=== PATIENT | female | born 1970 | race Caucasian/White ===

== ENCOUNTER 2020-01-20 00:38 | Emergency (ER) | payer OTHER ==
[~2020-01-20] VITALS: Ht 160 cm; Wt 89.3 kg
[2020-01-20 00:55] VITALS: BP 156/81
--- NOTE | 2020-01-20 01:19 | ED Upper Extremity ---
General Chief Complaint: Upper Extremity Stated Complaint: RT SHOULDER PAIN-FALL IN MAY Source: patient Exam Limitations: no limitations History of Present Illness Date Seen by Provider: Jan 20, 2020 Time Seen by Provider: 00:57 Initial Comments Patient presents ER by private conveyance with chief complaint that she's had a re-aggravation of her right shoulder pain in the last 2 days. She says she fell back in May 2019, 7 months ago and that's what initiated the pain. Occasionally it will act up again. She does not follow with a primary care doctor. She has not seen physical therapy or had any treatment for this. She did take some naproxen and ibuprofen today with only modest relief of pain. No weakness numbness tingling or loss of control. Allergies and Home Medications Allergies Coded Allergies: Penicillins (Unverified Allergy, Mild, 06/08/09) Uncoded Allergies: SWEET POTATOES (Allergy, Mild, 06/08/09) Patient Home Medication List Home Medication List Reviewed: Yes Review of Systems Constitutional: No chills, No diaphoresis EENTM: No ear discharge, No hearing loss Respiratory: No cough, No dyspnea on exertion All Other Systems Reviewed Negative Unless Noted: Yes Past Zrsgcre-Vzvenc-Ghadpi Hx Patient Social History Alcohol Use: Denies Use Recreational Drug Use: No Type Used: Cigarettes Recent Foreign Travel: No Contact w/Someone Who Travel: No Physical Abuse: No Sexual Abuse: No Mistreated: No Fear: No Physical Exam Vital Signs Capillary Refill : Height, Weight, BMI Height: '" Weight: lbs. oz. kg; BMI Method: General Appearance: WD/WN, no apparent distress HEENT: PERRL/EOMI, pharynx normal Neck: non-tender, full range of motion, normal inspection Cardiovascular: normal peripheral pulses, regular rate, rhythm Respiratory: normal breath sounds, no respiratory distress Shoulder: normal inspection, no evidence of injury, limited ROM (difficult see abducting the right shoulder above about 60. Weakness with the supraspinatus but other rotator cuff muscles were symmetrically intact for motor strength) Elbow/Forearm: normal inspection, non-tender, no evidence of injury, normal ROM, Right Procedures/Interventions Progress The patient indicated the spot of maximal pain so we cleaned with alcohol and then inserted a 1-1/2 inch 25-gauge needle with a 50-50 mixture of half percent bupivacaine and 1% lidocaine. We withdrew on the plunger and did not aspirate any blood. We then injected in a and around the site about 3 cc of the mixture of lidocaine/bupivacaine. Patient tolerated procedure well. A Band-Aid was applied. Progress/Results/Core Measures Progress Progress Note : Time: 01:18 Progress Note Suspect an incomplete rotator cuff injury. We have taught her some passive range of motion exercises and are going to put her on 2 week course of NSAIDs. We'll give her a prescription for prednisone in case her symptoms are not improving in 1-2 weeks. We've also given her referral to physical therapy. We have finally given her a list of primary care physicians in the community that she can establish care with. Plan to do point tenderness needling using lidocaine and bupivacaine. Departure Impression Primary Impression: Rotator cuff arthropathy of right shoulder Disposition: HOME, SELF-CARE Condition: Stable Departure-Patient Inst. Decision time for Depature: :20 Referrals: NO,LOCAL PHYSICIAN (PCP/Family) Primary Care Physician Patient Instructions: LOCAL PHYSICIAN LIST, Passive Range of Motion Exercises, Neck and Shoulders, Rotator Cuff Injury (DC) Add. Discharge Instructions: Every 4 hours while awake you should do passive range of motion exercises for the next week. Starting the following week you can start doing more intensive active range of motion exercises. Call and follow-up with physical therapy. Establish care with a primary care physician. Start taking naproxen 500 mg twice a day for the next 2 weeks. You may use Tylenol 1000 mg every 8 hours as necessary for breakthrough pain. Topical creams especially with capsaicin oil can be helpful for discomfort. If you do not feel like you are seeing significant improvement over the next 1-2 weeks then you can take 2 tablets of prednisone daily for 5 days. All discharge instructions reviewed with patient and/or family. Voiced understanding. Scripts Naproxen (Naprosyn) 500 Mg Tablet 500 MG PO BID, #30 TAB 0 Refills Prov: JORGE MELARA 01/20/20 Prednisone (Prednisone) 20 Mg Tab 40 MG PO DAILY for 5 Days, #10 TAB 0 Refills Prov: JORGE MELARA 01/20/20 Work/School Note: Work Release Form Date Seen in the Emergency Department: Jan 20, 2020 Return to Work: Jan 20, 2020 Restrictions: Need Release from Doctor Other Restrictions Listed Below: No lifting more than 5 pounds with the right shoulder until 10/6/20. JORGE MELARA J Jan 20, 2020 01:19
[2020-01-20] MEDS ORDERED: PRD20T PO (01:22)
[2020-01-20] MEDS ORDERED: NAPR-1071 PO (01:22)
== END 2020-01-20 01:40 | disposition home or self-care (01) ==
LOC: EDUNIT# 00:38 → ER 00:48
DX: M12.511 Traumatic arthropathy, right shoulder (principal); Z88.0 Allergy status to penicillin; W19.XXXA Unspecified fall, initial encounter
CPT/HCPCS: 99284

== ENCOUNTER 2022-06-03 18:39 | Emergency (ER) | payer OTHER ==
[~2022-06-03] VITALS: Ht 160 cm; Wt 89.0 kg
[~2022-06-03 18:39] MED LIST: NAPR-1071 PO; PRD20T PO
--- NOTE | 2022-06-03 19:07 | ED Cough/URI ---
General Chief Complaint: Cough/Cold/Flu Symptoms Stated Complaint: COUGHING | CHEST CONGESTION Source: patient Exam Limitations: no limitations (AYANNA GIBBS APRN) History of Present Illness Date Seen by Provider: Jun 03, 2022 Time Seen by Provider: 18:46 Initial Comments 52-year-old female presents with respiratory complaints. States she started having a cough on Sunday. States about 3 hours ago she started having pain in her right ribs with inhaling and exhaling every time she breathes. Denies injury to this area. States on Sunday she was having a mild scratchy throat, but that has dissipated. Denies fevers, headache, chest pain, abdominal pain, nausea, vomiting, diarrhea, sore throat, body aches. States her mother is hospitalized with COVID, states she has been visiting her. Denies past medical history. Does not take any medications. (AYANNA GIBBS APRN) Allergies and Home Medications Allergies Coded Allergies: Penicillins (Unverified Allergy, Mild, 06/08/09) Uncoded Allergies: SWEET POTATOES (Allergy, Mild, 06/08/09) Patient Home Medication List Home Medication List Reviewed: Yes (AYANNA GIBBS APRN) Albuterol Sulfate (Ventolin Hfa) 1 Puff Puff, 2 PUFF INH Q4H Prescribed by: Ayanna Gibbs on 06/03/222038 Dexamethasone (Dexamethasone) 6 Mg Tablet, 6 MG PO DAILY Prescribed by: Ayanna Gibbs on 06/03/222038 Naproxen (Naprosyn) 500 Mg Tablet, 500 MG PO BID Prescribed by: JORGE MELARA on 01/20/20121 Prednisone (Prednisone) 20 Mg Tab, 40 MG PO DAILY Prescribed by: JORGE MELARA on 01/20/20121 Review of Systems Review of Systems Constitutional: see HPI (AYANNA GIBBS APRN) Past Ezsozso-Atrxpy-Vuocwm Hx Patient Social History Tobacco Use?: Yes Tobacco type used: Cigarettes Smoking Status: Current Everyday Smoker Substance use?: No Alcohol Use?: No Pt feels they are or have been: No (AYANNA GIBBS APRN) Past Medical History Surgery/Hospitalization HX: PMH;DENIES. SURGERY;BILATERAL ROTATER CUFFS AND TUBAL. (AYANNA GIBBS APRN) Physical Exam Vital Signs - First Documented 06/03/22 06/03/22 18:50 19:00 Temp 37.7 Pulse 106 Resp 24 B/P (MAP) 160/77 (104) Pulse Ox 92 O2 Delivery Room Air O2 Flow Rate 1.00 (AGGIE LOWE DO) Capillary Refill : (AYANNA GIBBS APRN) Height: '" Weight: lbs. oz. kg; 34.00 BMI Method: General Appearance: WD/WN, no apparent distress Neck: supple, normal inspection Respiratory: no respiratory distress, no accessory muscle use, decreased breath sounds Cardiovascular: no edema, no gallop, no JVD, no murmur, tachycardia Extremities: normal range of motion, normal inspection Neurologic/Psychiatric: alert, normal mood/affect, oriented x 3 Skin: normal color, warm/dry (AYANNA GIBBS APRN) Focused Exam Lactate Level 06/03/22 19:14: Lactic Acid Level 0.85 (AGGIE LOWE DO) Lactic Acid Level Laboratory Tests Test 06/03/22 19:14 Lactic Acid Level 0.85 MMOL/L (0.50-2.00) (NARDA LOWEA Parish MUÑOZ) Progress/Results/Core Measures Suspected Sepsis SIRS Temperature: Pulse: Respiratory Rate: Laboratory Tests 06/03/22 19:14: White Blood Count 14.2H Blood Pressure / Mean: 06/03/22 19:14: Lactic Acid Level 0.85 Laboratory Tests 06/03/22 19:14: Creatinine 0.74, INR Comment 1.0, Platelet Count 248, Total Bilirubin 0.5 (AYANNA GIBBS APRN) Results/Orders Lab Results Laboratory Tests Test 06/03/22 18:55 06/03/22 19:14 06/03/22 19:19 Range/Units Influenza Type A (RT-PCR) Not Detected Not Detecte Influenza Type B (RT-PCR) Not Detected Not Detecte SARS-CoV-2 RNA (RT-PCR) Detected H Not Detecte White Blood Count 14.2 H 4.3-11.0 10^3/uL Red Blood Count 4.42 3.80-5.11 10^6/uL Hemoglobin 13.4 11.5-16.0 g/dL Hematocrit 40 35-52 % Mean Corpuscular Volume 90 80-99 fL Mean Corpuscular Hemoglobin 30 25-34 pg Mean Corpuscular Hemoglobin Concent 34 32-36 g/dL Red Cell Distribution Width 13.2 10.0-14.5 % Platelet Count 248 130-400 10^3/uL Mean Platelet Volume 11.3 9.0-12.2 fL Immature Granulocyte % (Auto) 0 % Neutrophils (%) (Auto) 77 H 42-75 % Lymphocytes (%) (Auto) 13 12-44 % Monocytes (%) (Auto) 8 0-12 % Eosinophils (%) (Auto) 1 0-10 % Basophils (%) (Auto) 0 0-10 % Neutrophils # (Auto) 11.0 H 1.8-7.8 10^3/uL Lymphocytes # (Auto) 1.9 1.0-4.0 10^3/uL Monocytes # (Auto) 1.2 H 0.0-1.0 10^3/uL Eosinophils # (Auto) 0.1 0.0-0.3 10^3/uL Basophils # (Auto) 0.0 0.0-0.1 10^3/uL Immature Granulocyte # (Auto) 0.1 0.0-0.1 10^3/uL Neutrophils % (Manual) 79 % Lymphocytes % (Manual) 7 % Monocytes % (Manual) 12 % Band Neutrophils 2 % Blood Morphology Comment NORMAL Prothrombin Time 14.1 12.2-14.7 SEC INR Comment 1.0 0.8-1.4 Activated Partial Thromboplast Time 28 24-35 SEC D-Dimer 0.47 0.00-0.49 UG/ML Sodium Level 135 135-145 MMOL/L Potassium Level 3.5 L 3.6-5.0 MMOL/L Chloride Level 101 98-107 MMOL/L Carbon Dioxide Level 23 21-32 MMOL/L Anion Gap 11 5-14 MMOL/L Blood Urea Nitrogen 5 L 7-18 MG/DL Creatinine 0.74 0.60-1.30 MG/DL Estimat Glomerular Filtration Rate 97 BUN/Creatinine Ratio 7 Glucose Level 111 H 70-105 MG/DL Lactic Acid Level 0.85 0.50-2.00 MMOL/L Calcium Level 9.7 8.5-10.1 MG/DL Corrected Calcium 9.7 8.5-10.1 MG/DL Total Bilirubin 0.5 0.1-1.0 MG/DL Aspartate Amino Transf (AST/SGOT) 14 5-34 U/L Alanine Aminotransferase (ALT/SGPT) 13 0-55 U/L Alkaline Phosphatase 117 40-136 U/L Total Protein 8.6 H 6.4-8.2 GM/DL Albumin 4.0 3.2-4.5 GM/DL B-Type Natriuretic Peptide < 10.0 <100.0 PG/ML (AGGIE LOWE DO) Micro Results Microbiology 06/03/22 Blood Culture - Preliminary, Resulted No growth (AGGIE LOWE DO) Vital Signs/I&O 06/03/22 06/03/22 06/03/22 18:50 19:00 21:06 Temp 37.7 37.7 Pulse 106 92 Resp 24 18 B/P (MAP) 160/77 (104) 147/80 Pulse Ox 92 96 97 O2 Delivery Room Air Nasal Cannula Room Air O2 Flow Rate 1.00 (AGGIE LOWE DO) Vital Signs/I&O Capillary Refill : (AYANNA GIBBS APRN) Progress Note #1: Time: 19:15 Progress Note Patient seen and evaluated, resting in bed, no acute distress. Based on exam and symptoms, concern for COVID or flu, or pneumonia. COVID and flu swabs ordered. Chest x-ray ordered. Patient's oxygen saturation dropped to 91% after assessment, she is also mildly tachycardic with a low-grade fever. Septic work- up initiated including CBC, CMP, coags, blood cultures x2, lactic acid. IV fluids, Tylenol, and albuterol inhaler ordered. Progress Note #2: Time: 20:00 Progress Note Labs reviewed. CBC shows elevated WBC at 14.2. CMP shows slightly decreased potassium at 3.5, glucose 111. Lactic acid normal at 0.85. Coags normal. D- dimer normal at 0.47. She is positive for COVID. Chest x-ray reviewed. Shows cardiomegaly with mild central pulmonary venous congestion. BNP added. Patient reevaluated this time, states she is feeling better. Lung sounds improved. Turned off oxygen at this time to monitor O2 saturation. Results of test so far discussed with patient. She denies history of heart failure or enlarged heart. Waiting for results of BNP. Progress Note #3: Time: 20:28 Progress Note BNP less than 10. O2 saturation remained 93 to 94% on room air. Results discussed with patient. Will discharge with Decadron, Paxlovid, and inhaler. Patient agreeable to discharge plan. Patient given discharge instructions and return precautions (AYANNA GIBBS APRN) Diagnostic Imaging Diagonstic Imaging: Xray Plain Films/CT/US/NM/MRI: chest Comments [facility], [place] NAME: LORNA [facility] REC#: [id number] PT STATUS: REG ER : 1970 PHYSICIAN: AYANNA GIBBS APRN ADMIT DATE: 06/03/22/ER Signed Date of Exam:06/03/22 CHEST 1 VIEW, AP/PA ONLY INDICATION: Right rib pain. FINDINGS: There is generalized cardiomegaly and mild central pulmonary venous congestion. The mediastinal configuration is unremarkable. There is no pleural effusion, pneumothorax or pneumonia. The visualized osseous structures are unremarkable. IMPRESSION: Cardiomegaly and mild central pulmonary venous congestion. Dictated by: Dictated on workstation # [id number] Dict: 06/03/221939 Trans: 06/03/221948 [facility] [id number] Interpreted by: LNI WOOD MD Electronically signed by: LIN WOOD MD 06/03/221948 (AYANNA GIBBS APRN) Departure Impression Primary Impression: COVID Disposition: 01 HOME, SELF-CARE Condition: Stable Departure-Patient Inst. Decision time for Depature: 20:28 (AYANNA GIBBS APRN) Referrals: JAMES ROBLES (PCP/Family) Primary Care Physician Patient Instructions: COVID-19 (DC) Add. Discharge Instructions: Take Paxlovid twice a day as prescribed. It may cause diarrhea, if it does you may discontinue. Take Decadron once daily for 10 days. Use albuterol inhaler 2 puffs every 4 hours as needed for trouble breathing. Return for increased shortness of breath, chest pain, fevers that are uncontrolled with Tylenol or ibuprofen, or any other new, concerning, or worsening symptoms. Follow-up with primary care provider regarding the enlarged heart and vascular congestion on your chest x-ray. All discharge instructions reviewed with patient and/or family. Voiced understanding. Scripts Albuterol Sulfate (VENTOLIN HFA) 1 Puff Puff 2 PUFF INH Q4H for 7 Days, #1 EA 0 Refills 1 PUFF = 90 MCG Prov: AYANNA GIBBS APRN 06/03/22 Dexamethasone (Dexamethasone) 6 Mg Tablet 6 MG PO DAILY for 10 Days, #10 TAB 0 Refills Prov: AYANNA GIBBS APRN 06/03/22 Work/School Note: Work Release Form Date Seen in the Emergency Department: Jun 03, 2022 Return to Work: Jun 06, 2022 Restrictions: No Restrictions Other Restrictions Listed Below: May return to work if feeling better and without fever ATTENDING PHYSICIAN NOTE: I WAS PHYSICALLY PRESENT ER PHYSICIAN, BUT I WAS NOT INVOLVED IN ANY DECISION MAKING OR ANY CARE OF THIS PATIENT AND I AM NOT COLLABORATING PHYSICIAN. (AGGIE LOWE DO) AYANNA GIBBS APRN Jun 03, 2022 19:07 AGGIE LOWE DO Jun 05, 2022 05:12
[2022-06-03] MEDS ORDERED: RT-ALBUTEROL HFA 8.5 GM INHALER IH ONE (19:15)
[2022-06-03] MEDS ORDERED: NS IV 1000 ML 1,000 ML IV SCH (19:15)
[2022-06-03 19:25] LABS: BASOPHILS % (AUTO) 0 % (0-10); EOSINOPHILS # (AUTO) 0.1 10^3/uL (0.0-0.3); EOSINOPHILS % (AUTO) 1 % (0-10); HEMATOCRIT 40 % (35-52); HEMOGLOBIN 13.4 g/dL (11.5-16.0); LYMPHOCYTES # (AUTO) 1.9 10^3/uL (1.0-4.0); LYMPHOCYTES % (AUTO) 13 % (12-44); MEAN CORPUSCULAR HEMOGLOBIN 30 pg (25-34); MEAN CORPUSCULAR HGB CONC 34 g/dL (32-36); MEAN CORPUSCULAR VOLUME 90 fL (80-99); MEAN PLATELET VOLUME 11.3 fL (9.0-12.2); MONOCYTES # (AUTO) 1.2 10^3/uL (0.0-1.0); MONOCYTES % (AUTO) 8 % (0-12); NEUTROPHILS % (AUTO) 77 % (42-75); PLATELET COUNT 248 10^3/uL (130-400); WHITE BLOOD COUNT 14.2 10^3/uL (4.3-11.0)
[2022-06-03] MEDS ORDERED: ACETAMINOPHEN 500 MG TAB (TYLENOL) PO ONE (19:30)
[2022-06-03 19:42] LABS: PROTHROMBIN TIME PATIENT 14.1 SEC (12.2-14.7)
--- NOTE | 2022-06-03 19:43 | Diagnostic Imaging Report ---
INDICATION: Right rib pain. FINDINGS: There is generalized cardiomegaly and mild central pulmonary venous congestion. The mediastinal configuration is unremarkable. There is no pleural effusion, pneumothorax or pneumonia. The visualized osseous structures are unremarkable. IMPRESSION: Cardiomegaly and mild central pulmonary venous congestion. Dictated by: Dictated on workstation # [id number]
[2022-06-03 19:46] LABS: BILIRUBIN,TOTAL 0.5 MG/DL (0.1-1.0); CALCIUM 9.7 MG/DL (8.5-10.1); CREATININE SERUM 0.74 MG/DL (0.60-1.30); POTASSIUM 3.5 MMOL/L (3.6-5.0); TOTAL PROTEIN 8.6 GM/DL (6.4-8.2)
[2022-06-03 19:52] LABS: BAND NEUTROPHILS 2 %; LYMPHOCYTES % (MANUAL) 7 %; MONOCYTES % (MANUAL) 12 %; NEUTROPHILS % (MANUAL) 79 %; RBC MORPH NORMAL
[2022-06-03] MEDS ORDERED: RT-ALBUINH INH (20:39)
[2022-06-03] MEDS ORDERED: DEXA6TAB PO (20:39)
[2022-06-03] MEDS ORDERED: RX-NIRMATRELVIR/RITONAVIR (PAXLOVID) #30 TABS PO SCH (20:45)
[2022-06-03 21:06] VITALS: BP 147/80
== END 2022-06-03 21:06 | disposition home or self-care (01) ==
LOC: EDUNIT# 18:39 → ER 18:42
DX: U07.1 COVID-19 (principal); R05.9 Cough, unspecified; R50.9 Fever, unspecified; R00.0 Tachycardia, unspecified; R07.81 Pleurodynia; F17.210 Nicotine dependence, cigarettes, uncomplicated; Z28.310 Unvaccinated for COVID-19
CPT/HCPCS: 36415; 71045; 80053; 83605; 83880; 85007; 85027; 85379; 85610; 85730; 87040; 87636